=== PATIENT | female | born 1995 | race African-American/Black ===

== ENCOUNTER 2019-05-29 20:52 | Observation (INO) | payer OTHER, SELFPAY ==
[2019-05-29] VITALS (7 sets, daily range): BP systolic 121–133; BP diastolic 68–92; PULSE 99–123; RESP 20; TEMP 36.9; BMI 40.6
--- NOTE | 2019-05-29 20:52 | OBADM ---
This patient, Arabella Perry, admitted to the OB room Labor/Delivery/Recovery 104 for observation. Patient/family oriented to hospital policies and general routines including ID bracelet, bed and alarms, visiting hours, pain management, procedures, bathroom and other care routines, personal items, smoking policy, room service/diet, and visiting hours. Patient/Family are encouraged to report perceived risks to care and to ask questions if they do not understand what they are told or what they should do.
[2019-05-29 22:22] LABS: Add Urine Microscopic? YES; Amorphous Sediment Urine Few; Appearance Urine Clear (Clear); Bacteria Urine Trace /hpf; Bilirubin Urine Negative (Negative); Blood Urine Negative (Negative); Color Urine Yellow (Yellow); Glucose Urine UA Negative (Negative); Ketones Urine Negative (Negative); Leukocyte Esterase Ur Negative LEU/UL (NEGATIVE); Mucus Urine Rare /lpf; Nitrate Urine Negative (Negative); Protein Urine 1+ mg/dL (Negative); RBC Urine 0-2 /hpf (0-2); Specific Grav Ur 1.025 (1.001-1.035); Squamous Epithelial Cell Urine Occasional /hpf (Few); Urobilinogen Urine Negative mg/dL (<2.0); WBC Urine 0-3 /hpf (0-3)
--- NOTE | 2019-05-29 22:57 | PC.NURSE ---
IXG=[id number] just before removing monitors. Pt getting up and getting dressed in anticipation of dc home.
--- NOTE | 2019-05-29 23:10 | PC.NURSE ---
Discharge packet reviewed with patient and her mother. Verbalized and understanding. DC home at this time.
--- NOTE | 2019-06-03 13:27 | P.PNOB_ITS ---
OB - Triage/Final Diagnosis Visit Information Date of evaluation: 05/29/19 Reason for evaluation: threatened labor Evaluation Laboratory results: Laboratory Tests 05/29/19 22:10 Urine Color Yellow Urine Appearance Clear Urine pH 6.0 Ur Specific [place] 1.025 Urine Protein 1+ H Urine Glucose (UA) Negative Urine Ketones Negative Ur Blood (Man) Negative Urine Nitrate Negative Urine Bilirubin Negative Urine Urobilinogen Negative Ur Leukocyte Esterase Negative Urine RBC 0-2 Urine WBC 0-3 Ur Squamous Epith Cells Occasional Amorphous Sediment Few H Urine Bacteria Trace Urine Mucus Rare
== END 2019-05-29 23:10 | disposition home or self-care (01) ==
PROVIDERS: Admitting Provider Obstetrics & Gynecology; Visit Provider Obstetrics & Gynecology
DX: O47.1 False labor at or after 37 completed weeks of gestation (principal); Z3A.37 37 weeks gestation of pregnancy
CPT/HCPCS: 81001; 87086; 87088; G0378; G0379

== ENCOUNTER 2019-06-08 08:22 | Inpatient (IN) | payer OTHER, SELFPAY ==
[2019-06-08] VITALS (115 sets, daily range): BP systolic 84–172; BP diastolic 42–139; PULSE 78–127; RESP 18–20; TEMP 36.4–37.1; O2SAT 95–100; BMI 41.3
[2019-06-08 10:16] LABS: Basophils Percent Auto 0.2 % (0.2-1.2); Eosinophils Percent Auto 0.3 % (0-4.4); Hematocrit 37.4 % (37.0-47.0); Hemoglobin 12.4 g/dL (12.0-15.0); Immature Granulocyte Percent A 1.4 % (0-0.5); Lymphocytes Percent Auto 11.6 % (18.3-44.2); Mean Corpuscular HGB Conc 33.2 g/dl (32-36); Mean Corpuscular Hemoglobin 26.7 pg (26-34); Mean Corpuscular Volume 80.6 fl (80-100); Mean Platelet Volume 8.7 fl (7.4-10.4); Monocytes Absolute Auto 0.8 K/mm3 (0.1-0.6); Monocytes Percent Auto 5.6 % (2.6-8.5); Neutrophils Absolute Auto 11.9 K/mm3 (1.3-6.7); Neutrophils Percent Auto 80.9 % (45.5-73.1); Platelet Count Result 223 k/mm3 (150-375); Red Blood Count 4.64 M/mm3 (4.2-5.4); Red Cell Distribution Width 15.1 % (11.5-14.5); White Blood Count 14.7 K/mm3 (4.5-10.0)
--- NOTE | 2019-06-08 10:54 | LDADM ---
This patient, Arabella Perry, was admitted to Labor/Delivery/Recovery 105 on 06/08/19 at 08:23. Plans for labor, pain management and were discussed with patient. Patient/family oriented to hospital policies and general routines including ID bracelet, bed and alarms, visiting hours, pain management, procedures, bathroom and other care routines, personal items, smoking policy, room service/diet and guest tray routines, infant security routines, and visiting hours. Patient/Family are encouraged to report perceived risks to care and to ask questions if they do not understand what they are told or what they should do. See OBIX for further documentation.
--- NOTE | 2019-06-08 10:58 | WPDANESEPPF ---
Anes - Initial Pre Proc Eval Date/Time: 06/08/19 10:58 Surgeon: Juwan Causey MD Pre Op Diagnosis: contractions Patient Data Age: 23 Gender: F Height: Weight: Last Vital Signs Pulse 119 H 06/08/19 10:01 BP 146/90 H 06/08/19 10:01 Allergies Allergy/AdvReac Type Severity Reaction Status Date / Time codeine Allergy Hives Verified 05/29/19 23:29 Home Medications Medication Instructions Recorded Confirmed Type acyclovir 800 mg PO DAILY 05/29/19 05/29/19 History albuterol sulfate 1 - 2 puff INHALATION PRN PRN 05/29/19 05/29/19 History buspirone 10 mg PO DAILY 05/29/19 05/29/19 History Laboratory Tests 06/08/19 06/08/19 10:09 10:09 WBC 14.7 K/mm3 H K/mm3 (4.5-10.0) RBC 4.64 M/mm3 M/mm3 (4.2-5.4) Hgb 12.4 g/dL g/dL (12.0-15.0) Hct 37.4 % % (37.0-47.0) MCV 80.6 fl fl (80-100) MCH 26.7 pg pg (26-34) MCHC 33.2 g/dl g/dl (32-36) RDW 15.1 % H % (11.5-14.5) Plt Count 223 k/mm3 k/mm3 (150-375) MPV 8.7 fl fl (7.4-10.4) Immature Gran % (Auto) 1.4 % H % (0-0.5) Neut % (Auto) 80.9 % H % (45.5-73.1) Lymph % (Auto) 11.6 % L % (18.3-44.2) [place] % (Auto) 5.6 % % (2.6-8.5) Eos % (Auto) 0.3 % % (0-4.4) Baso % (Auto) 0.2 % % (0.2-1.2) Lymph # (Auto) 1.70 K/mm3 K/mm3 (0.9-3.2) [place] # (Auto) 0.8 K/mm3 H K/mm3 (0.1-0.6) Eos # (Auto) 0.0 K/mm3 K/mm3 (0-0.3) Baso # (Auto) 0.0 K/mm3 K/mm3 (0.0-0.1) Abs Immat Gran (auto) 0.20 K/mm3 H K/mm3 (0.00-0.031) Absolute Neuts (auto) 11.9 K/mm3 H K/mm3 (1.3-6.7) Absolute Nucleated RBC 0.0 K/mm3 K/mm3 (0.0-0.012) Nucleated RBC % 0.0 % % (0.0-0.2) RPR Pending Patient hx anesthesia problems: none Family hx anesthesia problems: none Anes - Eval Final PreProcedure Day of Procedure 06/08/19 10:58 Patient weight: normal Heart: regular rate and rhythm Lungs: normal air movement Airway: Mallampati scale class II Neurological: alert and oriented Last oral intake: >/= 8 hours ASA classification: II Emergent: no Anesthetic plan: proceed Anesthesia type and monitoring: regional epidural and standard monitoring Informed Consent: The patient's anesthetic plan and its attendant risks and benefits were discussed with the patient/family/POA. Questions were solicited and answers provided to the satisfaction of the patient/family/POA.
[2019-06-08] MEDS: LACTATED RINGERS 1,000 ML 125 ML IV CONT ×2 (11:01→14:27)
--- NOTE | 2019-06-08 11:29 | P.PNAN_ITS ---
Anes - Initial Pre Proc Eval Date/Time: 06/08/19 10:55 Surgeon: Juwan Causey MD Pre Op Diagnosis: contractions Patient Data Age: 23 Gender: F Height: 1.75 m Weight: 127 kg Last Vital Signs Pulse 108 H 06/08/19 11:28 BP 121/68 06/08/19 11:28 Pulse Ox 95 06/08/19 11:27 Allergies Allergy/AdvReac Type Severity Reaction Status Date / Time codeine Allergy Hives Verified 05/29/19 23:29 Home Medications Medication Instructions Recorded Confirmed Type acyclovir 800 mg PO DAILY 05/29/19 05/29/19 History albuterol sulfate 1 - 2 puff INHALATION PRN PRN 05/29/19 05/29/19 History buspirone 10 mg PO DAILY 05/29/19 05/29/19 History Laboratory Tests 06/08/19 06/08/19 10:09 10:09 WBC 14.7 K/mm3 H K/mm3 (4.5-10.0) RBC 4.64 M/mm3 M/mm3 (4.2-5.4) Hgb 12.4 g/dL g/dL (12.0-15.0) Hct 37.4 % % (37.0-47.0) MCV 80.6 fl fl (80-100) MCH 26.7 pg pg (26-34) MCHC 33.2 g/dl g/dl (32-36) RDW 15.1 % H % (11.5-14.5) Plt Count 223 k/mm3 k/mm3 (150-375) MPV 8.7 fl fl (7.4-10.4) Immature Gran % (Auto) 1.4 % H % (0-0.5) Neut % (Auto) 80.9 % H % (45.5-73.1) Lymph % (Auto) 11.6 % L % (18.3-44.2) [place] % (Auto) 5.6 % % (2.6-8.5) Eos % (Auto) 0.3 % % (0-4.4) Baso % (Auto) 0.2 % % (0.2-1.2) Lymph # (Auto) 1.70 K/mm3 K/mm3 (0.9-3.2) [place] # (Auto) 0.8 K/mm3 H K/mm3 (0.1-0.6) Eos # (Auto) 0.0 K/mm3 K/mm3 (0-0.3) Baso # (Auto) 0.0 K/mm3 K/mm3 (0.0-0.1) Abs Immat Gran (auto) 0.20 K/mm3 H K/mm3 (0.00-0.031) Absolute Neuts (auto) 11.9 K/mm3 H K/mm3 (1.3-6.7) Absolute Nucleated RBC 0.0 K/mm3 K/mm3 (0.0-0.012) Nucleated RBC % 0.0 % % (0.0-0.2) RPR Pending Patient hx anesthesia problems: none Family hx anesthesia problems: none PMFSH Social History Social History Smoking status: Never smoker Second hand tobacco smoke exposure: Yes Substance use: never Gender identity (if verbalized by the patient): Female Spiritual care concerns: No Anes - Eval Final PreProcedure Day of Procedure 06/08/19 11:29 Informed Consent: The patient's anesthetic plan and its attendant risks and benefits were discussed with the patient/family/POA. Questions were solicited and answers provided to the satisfaction of the patient/family/POA.
--- NOTE | 2019-06-08 12:44 | P.PNOB_ITS ---
OB - PN: Subj Subjective Date/time seen: 06/08/19 12:44 FHT 150, Cat 2, AROM thick mec, cervix 4-5/80/-1. Explained to patient management of thick meconium. Continue expectant management. OB - PN: Obj Data Labs CBC & Chem 7: 06/08/19 10:09 Labs: Laboratory Results - last 24 hr 06/08/19 06/08/19 10:09 10:09 WBC 14.7 H RBC 4.64 Hgb 12.4 Hct 37.4 MCV 80.6 MCH 26.7 MCHC 33.2 RDW 15.1 H Plt Count 223 MPV 8.7 Immature Gran % (Auto) 1.4 H Neut % (Auto) 80.9 H Lymph % (Auto) 11.6 L [place] % (Auto) 5.6 Eos % (Auto) 0.3 Baso % (Auto) 0.2 Lymph # (Auto) 1.70 [place] # (Auto) 0.8 H Eos # (Auto) 0.0 Baso # (Auto) 0.0 Abs Immat Gran (auto) 0.20 H Absolute Neuts (auto) 11.9 H Absolute Nucleated RBC 0.0 Nucleated RBC % 0.0 Blood Type AB Positive Antibody Screen Negative OB - PN A/P Time Spent With Patient Time: Total time spent is greater than 50% in coordination of care (as documented) at patient's floor/unit and/or counseling patient:
--- NOTE | 2019-06-08 12:46 | PM.IMHP ---
H&P: HPI History of Present Illness Chief complaint: contractions Narrative: Arabella Perry is a 23 year old female . Presented with c/o ctx since 0600 regular. Also has had decreased movement for two days. On admission cervix changed to 3/75% and had regular contractions. tracing Cat 2, no decel, decrease variability, ctx q 4. LMP 08/13/18 + EDC 05/21/2019. She has history of regular periods. Per short review there was an ultrasound in November. Results not seen in chart. Record stated it showed EDC 06/19/19 U/S 03/09/19 _ 25 04/17 EDC 06/19/19. PNC significant for h/o anxiety depression. She was on Buspar and then stopped and started on Zoloft a few days ago but stopped it due to decreased movement for three days. H/o mild asthma- no exacerbations during . She has history of HSV since 11/28. No prodromal or active lesion symptoms. Light negative on arrival. She has been on suppression since 36 weeks. H/o obesity. H/o macrosomia- 9lb 6oz. ( Last ultrasound with this in [facility]) FOC sickle cell trait. Rubella Nonimmune. Heterozygous for MTHFR. Labs: AB pos, GBS neg, GC/CHL neg. ASCUS pap. Rubella nonimmune. Urine culture neg. MSAFP neg. UDS neg. Review of Systems Review of Systems: All systems reviewed & are unremarkable except as noted in HPI and below Constitutional: Constitutional: Reports no additional constitutional complaints and Denies headache(s) Eyes: Eyes: Denies spots in vision ENT: Reports system reviewed and no additional complaints, except as documented and Denies headache(s) Cardiovascular: Cardiovascular: Denies chest pain and Denies dyspnea Respiratory: Respiratory: Denies dyspnea Gastrointestinal: Gastrointestinal: Reports no additional gastrointestinal complaints, Reports bloating and Reports nausea Genitourinary: Genitourinary: Reports amenorrhea Musculoskeletal: Musculoskeletal: Reports no additional musculoskeletal complaints Integumentary/Breasts: Skin/Breast: Denies breast mass and Denies rash Neurologic: Denies headache(s) Psychiatric: Psychiatric: Reports no additional psychiatric complaints [facility] Social History Social History Smoking status: Never smoker Second hand tobacco smoke exposure: Yes Substance use: never Gender identity (if verbalized by the patient): Female Spiritual care concerns: No Meds Home Medications and Allergies Home Medications Medication Instructions Recorded Confirmed Type acyclovir 800 mg PO DAILY 05/29/19 05/29/19 History albuterol sulfate 1 - 2 puff INHALATION PRN PRN 05/29/19 05/29/19 History buspirone 10 mg PO DAILY 05/29/19 05/29/19 History Allergies Allergy/AdvReac Type Severity Reaction Status Date / Time codeine Allergy Hives Verified 05/29/19 23:29 Vital Signs Vital Signs - 24 hr 06/08/19 08:46 06/08/19 09:01 06/08/19 09:16 Pulse Rate 113 H 110 H 113 H Blood Pressure 140/77 149/86 H 139/85 Pulse Oximetry 06/08/19 09:32 06/08/19 09:46 06/08/19 10:01 Pulse Rate 107 H 114 H 119 H Blood Pressure 135/87 131/81 146/90 H Pulse Oximetry 06/08/19 11:08 06/08/19 11:09 06/08/19 11:11 Pulse Rate 118 H 114 H 109 H Blood Pressure 146/106 H 129/84 144/89 H Pulse Oximetry 98 06/08/19 11:12 06/08/19 11:13 06/08/19 11:16 Pulse Rate 106 H 108 H Blood Pressure 125/79 124/83 Pulse Oximetry 98 06/08/19 11:17 06/08/19 11:21 06/08/19 11:22 Pulse Rate 121 H Blood Pressure 127/79 Pulse Oximetry 97 96 06/08/19 11:23 06/08/19 11:26 06/08/19 11:27 Pulse Rate 127 H 126 H Blood Pressure 130/73 110/57 L Pulse Oximetry 95 06/08/19 11:28 06/08/19 11:31 06/08/19 11:32 Pulse Rate 108 H 116 H Blood Pressure 121/68 110/61 Pulse Oximetry 97 06/08/19 11:33 06/08/19 11:36 06/08/19 11:37 Pulse Rate 110 H 108 H Blood Pressure 123/68 117/65 Pulse Oximetry 97 06/08/19 11:38 06/08/19 11:41 06/08/19 11:42
[2019-06-08] MEDS: OXYTOCIN 30 UNITS/NS 500 ML 30 UNITS/500 ML BAG 125 UNITS IV CONT ×2 (16:19→18:32)
--- NOTE | 2019-06-08 17:45 | PM.OBPRVD ---
OB - Delivery Note Procedure Delivery date: 06/08/19 Procedure: Spontaneous vaginal delivery events: Meconium Stained Fluid Intrapartal events: None Induction method: none Delivery augmentation: rupture of membranes (Thick meconium) and pitocin Delivery monitor: external FHT Route of delivery: Episiotomy description: None Laceration description: None Estimated blood loss (mL): 150 Anesthesia type: Epidural Disposition: floor Complications: None Narrative: She was admitted in active labor. She continued to contract regularly. She received an epidural. She had AROM thick meconium. tracing reassuring. She had a persistent anterior lip with irregular contractions. Pitocin augmentation was started and she dilated to complete. She delivered a male at 1736 over intact perineum. There was a tight nuchal cord which was surgically reduced. Infant was vigorously crying upon delivery. Peds available at delivery. Placenta delivered spontaneously and intact. [place] Baby Date of : 06/08/19 Time of : 17:36 Weeks of gestation at delivery: 38 Infant gender: Male Weight (pounds): 8 Weight (ounces): 2 presentation: vertex position: Left Occiput Anterior Placenta delivery description: Spontaneous cord vessel description: Tight (surgically reduced) score one minute: 8 score five minutes: 9
[2019-06-08] MEDS: IBUPROFEN 600 MG TABLET PO (20:07)
[2019-06-08] MEDS: WITCH HAZEL 40 PADS 1 PAD TOPICAL (20:08)
[2019-06-08] MEDS: BENZOCAINE 20% AER SPR (*SP) 56 GM CAN 1 SPRAY TOPICAL (20:08)
[2019-06-09 05:28] LABS: Hematocrit 34.9 % (37.0-47.0); Hemoglobin 11.5 g/dL (12.0-15.0)
[2019-06-09 07:30] LABS: Rapid Plasma Reagin Non-Reactive (NonReactive)
[2019-06-09 07:45] VITALS: BP 133/85; PULSE 93; RESP 18; TEMP 36.6; O2SAT 99
[2019-06-09] MEDS: SERTRALINE HCL 50 MG TABLET PO (07:58)
[2019-06-09] MEDS: DOCUSATE SODIUM 100 MG CAPSULE PO (07:58)
[2019-06-09] MEDS: IBUPROFEN 600 MG TABLET PO ×3 (07:58→23:35)
--- NOTE | 2019-06-09 11:39 | P.PNOB_ITS ---
OB - PN: Subj Subjective Date/time seen: 06/09/19 0835 . Adequate pain controlled. Patient comments: pain well controlled, tolerating diet and other (Decreasing lochia.) [place] baby status: doing well and nursing well OB - PN: Obj Data Labs CBC & Chem 7: 06/09/19 04:57 Labs: Laboratory Results - last 24 hr 06/08/19 06/08/19 06/09/19 10:09 10:09 04:57 Hgb 11.5 L Hct 34.9 L RPR Non-reactive Blood Type AB Positive Antibody Screen Negative OB - PN A/P Plan day: 1 Plan: routine care Comments: Patient doing well. Time Spent With Patient Time: Total time spent is greater than 50% in coordination of care (as documented) at patient's floor/unit and/or counseling patient: Exam Psych: Affect: normal affect Other: Abd: fundus firm below umbilicus, nontender Perineum: healing Ext: nontender
[2019-06-09 19:50] VITALS: BP 122/78; PULSE 82; RESP 20; TEMP 37
[2019-06-10 07:30] VITALS: BP 130/79; PULSE 95; RESP 18; TEMP 37; O2SAT 98
[2019-06-10] MEDS: IBUPROFEN 600 MG TABLET PO (07:33)
[2019-06-10] MEDS: SERTRALINE HCL 50 MG TABLET PO (07:33)
[2019-06-10] MEDS: MEASLES,MUMPS,RUBELLA VACCINE 0.5 ML VIAL SUB-Q (07:35)
--- NOTE | 2019-06-10 08:57 | PM.OBPNVD ---
OB - PN: Subj Subjective Date/time seen: 06/10/19 08:57 Patient comments: pain well controlled, tolerating diet and other (Decreasing lochia.) baby status: doing well and nursing well OB - PN: Obj Data Labs CBC & Chem 7: 06/09/19 04:57 OB - PN A/P Plan day: 2 Plan: discharge home and other Comments: Patient doing well. 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 Discharge instructions provided. Time Spent With Patient Time: Total time spent is greater than 50% in coordination of care (as documented) at patient's floor/unit and/or counseling patient: Time with patient: less than 15 minutes Review of Systems Review of Systems: All systems reviewed & are unremarkable except as noted in HPI and below Constitutional: Constitutional: Reports no additional constitutional complaints Cardiovascular: Cardiovascular: Denies dyspnea Respiratory: Respiratory: Denies dyspnea Gastrointestinal: Gastrointestinal: Reports no additional gastrointestinal complaints and Denies abdominal pain Genitourinary: Genitourinary: Reports no additional female genitourinary complaints Exam Psych: Affect: normal affect Other: Abd: fundus firm below umbilicus, nontender Perineum: healing Ext: nontender
--- NOTE | 2019-06-30 15:41 | PM.OBDSVD ---
DS: Admitting Diagnosis Admitting Diagnosis Admitting Diagnosis: Encounter for supervision of normal , unspecified, third trimester DS: Discharge Diagnosis Discharge Diagnosis (1) Active labor: Status: Acute Assessment and Plan: Delivered (2) Labor without complication: Code(s): O80 - Encounter for full-term uncomplicated delivery Status: Acute OB - DS: Summary OB Procedures : None OB Procedures Intrapartum: Spontaneous Vag Delivery OB Procedures: : None Time Spent with Patient Time attestation: Total time spent providing and/or coordinating discharge services: DS: Data Data Completed and Pending Completed studies during hospitalization: Pending at discharge 06/08/19 18:24 Surgical [PTH] Routine Discharge Plan Discharge Attending physician on discharge: Juwan Causey Discharging Clinician: Juwan Causey Anticipated Discharge Date/Time: 06/10/19 08:59 Patient Disposition: Home, Self-Care Activity: pelvic rest Diet: regular Discharge Instructions: Pelvic rest for 4-6 weeks. Make follow up appointment with primary OB. Call your OB if fever, saturating more than a pad an hour, leg pain. She has prescription for progesterone only control pill by primary OB. May start after 2-3 weeks. Continue prescription for Zoloft that has from her primary OB. Education: Mom and Baby Guide Given to: Mother Follow-Up: Call your delivering provider's office for an appointment to be seen in: Call for appointment Mom and baby should come to the [facility] for the follow-up appointment. Appointment Date/Time: June 12, 2019 at 10:00 am Call [phone] if you are unable to keep your appointment time. BREAST CARE: 1. Wear a snug supportive bra. Bottle Feeding: A. May apply ice packs EPISIOTOMY/PERINEAL CARE: 1. Until bleeding stops, use your chandan bottle after urinating 2. Change your pad frequently throughout the day 3. No tub baths until seen by your physician - You may shower ACTIVITY: 1. Rest as much as possible. 2. Do not exercise or lift anything heavier than your baby (such as laundry or other children.) 3. Avoid stairs or driving as much as possible. 4. Do not put anything into the vagina. No douching, tampons, or sexual activity until seen by physician. NOTIFY PHYSICIAN IF YOU HAVE ANY QUESTIONS OR IF ANY OF THE FOLLOWING SYMPTOMS OCCUR: 1. If your perineum becomes red, swollen, or more painful than what you have experienced in the hospital. 2. If your vaginal bleeding becomes foul smelling. 3. If your vaginal bleeding becomes more heavy than a period or if your bleeding changes from pink to bright red. However, you may pass an occasional walnut-sized clot once or twice for the first week . 4. If you experience a sharp, shooting pain in you calves. 5. If you discover a hard, reddened area on your breast or if you experience flu-like symptoms. DIET: 1. Eat regular, well-balanced meals. 2. Drink plenty of fluids daily. If , drink to thirst. Stand Alone Forms: General Discharge Information Follow-up/Referrals: PHYSICIAN NOT ON STAFF,NONSTAFF [Primary Care Provider] - Call for Appointment Discharge Medications: Discontinued acyclovir 800 mg tablet 800 mg PO DAILY RF: 0 buspirone 10 mg tablet 10 mg PO DAILY RF: 0 albuterol sulfate 90 mcg/actuation HFA aerosol inhaler 1 - 2 puff INHALATION PRN PRN (Reason: Shortness Of Breath Or Wheezing) RF: 0 Date of admission: 06/08/19 08:23 Primary Care Provider: PHYSICIAN NOT ON STAFF,NONSTAFF Admitting Provider: Juwan Causey Discharge Date/Time: 06/10/19 13:21 Attending physician on admission: Juwan Causey
== END 2019-06-10 13:21 | disposition home or self-care (01) | DRG 560 ==
LOC: ANHLDR 10:31 → ANHOB2 20:39
PROVIDERS: Admitting Provider Obstetrics & Gynecology; Visit Provider Obstetrics & Gynecology
DX: O99.344 Other mental disorders complicating childbirth (principal); F41.8 Other specified anxiety disorders; O69.1XX0 Labor and delivery complicated by cord around neck, with compression, not applicable or unspecified; O77.0 Labor and delivery complicated by meconium in amniotic fluid; Z3A.38 38 weeks gestation of pregnancy; Z37.0 Single live birth; Z23 Encounter for immunization; O98.32 Other infections with a predominantly sexual mode of transmission complicating childbirth; A60.00 Herpesviral infection of urogenital system, unspecified
CPT/HCPCS: 36415; 85014; 85018; 85025; 86592; 86850; 86900; 86901; 88307; 90710; A9270; J2590; J2795; J7120